=== PATIENT | male | born 1980 | race Caucasian/White ===

== ENCOUNTER → 2020-09-01 | Outpatient (CLI) | payer BC ==
[2020-09-01 12:26] LABS: EOS # 0.1 (0.04-0.40); EOS % 1.4 % (0.0-4.0); HEMATOCRIT 43.8 % (42.0-52.0); LYMPH# 1.8 (1.50-4.00); MEAN CELL VOLUME 86 fl (78-100); MEAN CORPUSCULAR HEMOGLOBIN 29 pg (27-31); MEAN CORPUSCULAR HGB CONC 34 g/dL (33-37); MEAN PLATELET VOLUME 8.2 fl (7.4-10.4); MONO # 0.6 (0.20-0.80); NEU # 5.4 (1.40-6.50); PLATELET COUNT 282 K/mm3 (130-400); RED BLOOD COUNT 5.11 M/mm3 (4.20-5.60); RED CELL DISTRIBUTION WIDTH 12.7 % (11.5-14.5)
[2020-09-01 12:37] LABS: ALBUMIN 4.3 g/dL (3.5-5.0); POTASSIUM 3.7 mmol/L (3.5-5.1)
[2020-09-01 12:38] LABS: CALCIUM 9.4 mg/dL (8.3-10.5)
[2020-09-01 12:39] LABS: TOTAL PROTEIN 7.5 g/dL (6.4-8.3)
[2020-09-01 12:41] LABS: TOTAL BILIRUBIN 1.4 mg/dL (0.2-1.2)
== END ==
LOC: LAB 12:12
PROVIDERS: Internal Medicine
DX: F32.9 Major depressive disorder, single episode, unspecified (principal)

== ENCOUNTER → 2021-07-13 | Outpatient (CLI) | payer BC ==
[2021-07-13 12:39] LABS: BASO # 0.04 (0.02-0.10); EOS # 0.12 (0.04-0.40); EOS % 2.6 % (0.0-4.0); HEMATOCRIT 44.1 % (42.0-52.0); HEMOGLOBIN 15.4 g/dL (13.5-18.0); LYMPH# 1.84 (1.50-4.00); MEAN CELL VOLUME 89 fl (78-100); MEAN CORPUSCULAR HEMOGLOBIN 31 pg (27-31); MEAN CORPUSCULAR HGB CONC 35 g/dL (33-37); MEAN PLATELET VOLUME 8.3 fl (7.4-10.4); MONO # 0.36 (0.20-0.80); NEU # 2.17 (1.40-6.50); PLATELET COUNT 210 K/mm3 (130-400); RED BLOOD COUNT 4.98 M/mm3 (4.20-5.60); RED CELL DISTRIBUTION WIDTH 12.5 % (11.5-14.5); WHITE BLOOD COUNT 4.5 K/mm3 (4.8-10.8)
[2021-07-13 12:55] LABS: ALBUMIN 4.3 g/dL (3.5-5.0)
[2021-07-13 12:56] LABS: CALCIUM 9.4 mg/dL (8.3-10.5)
[2021-07-13 12:58] LABS: TOTAL PROTEIN 7.1 g/dL (6.4-8.3)
[2021-07-13 13:00] LABS: TOTAL BILIRUBIN 1.5 mg/dL (0.2-1.2)
== END ==
LOC: LAB 12:26
PROVIDERS: Internal Medicine
DX: Z00.00 Encounter for general adult medical examination without abnormal findings (principal); Z12.5 Encounter for screening for malignant neoplasm of prostate

== ENCOUNTER 2022-05-01 16:01 | Emergency (ER) | payer BC ==
[~2022-05-01] VITALS: Ht 180.3 cm; Wt 98.2 kg
[2022-05-01] MEDS ORDERED: ESCITALOPRAM10 MG PO (16:21)
[2022-05-01 17:05] LABS: URINE WBC 0 /hpf (0-3)
[2022-05-01 17:08] LABS: BASO # 0.03 K/mm3 (0.02-0.10); EOS # 0.23 K/mm3 (0.04-0.40); HEMATOCRIT 43.9 % (42.0-52.0); HEMOGLOBIN 15.4 g/dL (13.5-18.0); LYMPH# 2.92 K/mm3 (1.50-4.00); MEAN CELL VOLUME 87 fl (78-100); MEAN CORPUSCULAR HEMOGLOBIN 31 pg (27-31); MEAN CORPUSCULAR HGB CONC 35 g/dL (33-37); MONO # 0.77 K/mm3 (0.20-0.80); NEU # 3.75 K/mm3 (1.40-6.50); PLATELET COUNT 220 K/mm3 (130-400); RED BLOOD COUNT 5.05 M/mm3 (4.20-5.60); RED CELL DISTRIBUTION WIDTH 12.2 % (11.5-14.5); WHITE BLOOD COUNT 7.7 K/mm3 (4.8-10.8)
[2022-05-01 17:15] LABS: POTASSIUM 3.4 mmol/L (3.5-5.1)
[2022-05-01 17:16] LABS: CALCIUM 9.6 mg/dL (8.3-10.5)
[2022-05-01 17:17] LABS: URINE APPEARANCE CLEAR; URINE BILIRUBIN NEGATIVE (NEGATIVE); URINE BLOOD 50 ery/uL (NEGATIVE); URINE COLOR YELLOW; URINE GLUCOSE NEGATIVE (NEGATIVE); URINE KETONE NEGATIVE (NEGATIVE); URINE LEUKOCYTE ESTERASE NEGATIVE (NEGATIVE); URINE NITRATE NEGATIVE (NEGATIVE); URINE PROTEIN(semi-quant) NEGATIVE (NEGATIVE); URINE UROBILINOGEN NORMAL (NORMAL)
[2022-05-01 17:18] LABS: URINE MUCUS PRESENT (NOT PRESENT)
[2022-05-01 17:58] VITALS: BP 132/89
== END 2022-05-01 18:19 | disposition home or self-care (01) ==
LOC: ED 16:01
PROVIDERS: Family Medicine
DX: R10.9 Unspecified abdominal pain (principal)